=== PATIENT | female | born 1975 | race Asian ===

== ENCOUNTER 2024-12-29 19:34 | Emergency (ER) | payer BC ==
[~2024-12-29] VITALS: Ht 157.5 cm; Wt 66.7 kg
[2024-12-29 20:42] LABS: *BILIRUBIN,URIN NEGATIVE (NEGATIVE); *BLOOD, URINE 2+ (NEGATIVE); *CLARITY,URINE CLOUDY (CLEAR); *COLOR,URINE YELLOW (YELLOW); *KETONES,URINE 1+ (NEGATIVE); *PROTEIN,URINE 2+ (NEGATIVE); *UROBILINOGEN,URINE 0.2 E.U./dl (NORMAL); LEUKOCYTE ESTERASE ,URINE 3+ (NEGATIVE); NITRITE, URINE NEGATIVE (NEGATIVE); UGLUCOSE NEGATIVE (NEGATIVE)
[2024-12-29] MEDS ORDERED: NITR-84 PO (21:57)
[2024-12-29] MEDS ORDERED: ONDA4TAB11 PO (21:57)
[2024-12-29] MEDS ORDERED: CEPH500T PO (21:57)
[2024-12-29] MEDS ORDERED: CEFTRIAXONE 1 G VIAL ONE (21:59)
[2024-12-29] MEDS ORDERED: LIDOCAINE HCL 1% 20 ML VIAL ONE (21:59)
[2024-12-29] MEDS ORDERED: NITROFURANTOIN/NITROFURAN MAC 100 MG CAPSULE PO ONE (21:59)
[2024-12-29] MEDS: CEFTRIAXONE 1 G VIAL IM ONE (22:05)
[2024-12-29] MEDS: NITROFURANTOIN/NITROFURAN MAC 100 MG CAPSULE PO ONE (22:05)
[2024-12-29 22:11] VITALS: BP 109/52; O2SAT 99
== END 2024-12-29 22:12 | disposition home or self-care (01) ==
LOC: ER 20:21
DX: N12 Tubulo-interstitial nephritis, not specified as acute or chronic (principal); J45.909 Unspecified asthma, uncomplicated; G43.909 Migraine, unspecified, not intractable, without status migrainosus
CPT/HCPCS: 99283; 81001; 87086; 96372; J0696; J3490; A4606; A4663

== ENCOUNTER 2025-01-01 23:24 | Emergency (ER) | payer BC ==
[~2025-01-01] VITALS: Ht 157.5 cm; Wt 66.7 kg
[~2025-01-01 23:24] MED LIST: CEPH500T PO; NITR-84 PO; ONDA4TAB11 PO
[2025-01-01] MEDS: IV NORMAL SALINE 1000 ML BAG IV ONE (23:56)
[2025-01-02 00:01] LABS: BASOPHILS # (AUTO) 0.1 K/UL (0.0-0.2); BASOPHILS % (AUTO) 0.8 % (0.0-2.0); EOSINOPHILS # (AUTO) 0.1 K/uL (0.0-0.7); EOSINOPHILS % (AUTO) 0.5 % (0.0-7.0); HEMOGLOBIN 11.8 g/dL (10.9-14.3); LYMPHOCYTES # (AUTO) 1.5 K/uL (0.8-4.8); LYMPHOCYTES % (AUTO) 9.3 % (20.5-51.5); MEAN CORPUSCULAR HGB CONC 34 g/dL (32.3-35.6); MEAN CORPUSCULAR VOLUME 86.2 fL (75.5-95.3); MONOCYTES # (AUTO) 1.1 K/uL (0.1-1.30); MONOCYTES % (AUTO) 6.8 % (0.0-11.0); NEUTROPHILS # (AUTO) 13.1 K/uL (1.8-8.9); NEUTROPHILS % (AUTO) 82.6 % (38.5-71.5); PLATELET COUNT (AUTO) 567 K/uL (179-408); RED BLOOD CELL COUNT(AUTO) 4.06 MIL/uL (3.63-4.92); RED CELL DISTRIBUTION WIDTH 13.3 % (12.3-17.7); WHITE BLOOD COUNT (AUTO) 15.8 K/uL (3.8-11.8)
[2025-01-02 00:03] LABS: *URINE HCG, QUAL NEGATIVE (NEGATIVE)
[2025-01-02 00:04] LABS: *BILIRUBIN,URIN NEGATIVE (NEGATIVE); *BLOOD, URINE 2+ (NEGATIVE); *CLARITY,URINE CLOUDY (CLEAR); *COLOR,URINE YELLOW (YELLOW); *KETONES,URINE NEGATIVE (NEGATIVE); *PROTEIN,URINE 2+ (NEGATIVE); *UROBILINOGEN,URINE 0.2 E.U./dl (NORMAL); DIFFERENTIAL COMMENT 1; LEUKOCYTE ESTERASE ,URINE 3+ (NEGATIVE); NITRITE, URINE NEGATIVE (NEGATIVE); UGLUCOSE NEGATIVE (NEGATIVE)
[2025-01-02 00:06] LABS: CALCIUM 8.9 mg/dL (8.5-10.1); CREATININE 1.1 mg/dL (0.6-1.3); POTASSIUM 3.9 mmol/L (3.5-5.1)
[2025-01-02 00:12] LABS: ALBUMIN 3.1 g/dL (3.4-5.0); BILIRUBIN,DIRECT 0.1 mg/dL (0.0-0.2); BILIRUBIN,TOTAL 0.5 mg/dL (0.2-1.0); TOTAL PROTEIN, SERUM 8.5 g/dL (6.4-8.2)
[2025-01-02] MEDS ORDERED: PIPERACILLIN/TAZOBACTAM/D5W 50 ML IV ONE (00:33)
[2025-01-02 00:39] LABS: BACTERIA,URINE MANY /HPF (NONE SEEN); MUCUS,URINE MANY /LPF (0-FEW); RBC,URINE 20-50 /HPF (0-3); SQUAMOUS EPITHELIAL CELL,UR FEW /HPF (NONE SEEN); WBC,URINE TNTC /HPF (0-3)
[2025-01-02] MEDS: PIPERACILLIN SODIUM/TAZOBACTAM 3.375 G in IV DEXTROSE 5% 50 ML IV ONE (00:41)
[2025-01-02] MEDS ORDERED: ONDANSETRON 4 MG/2 ML VIAL ONE (01:20)
[2025-01-02] MEDS: ONDANSETRON 4 MG/2 ML VIAL IV ONE (01:25)
[2025-01-02] MEDS ORDERED: CIPR500T5 PO (02:42)
[2025-01-02] MEDS ORDERED: ONDA4TAB5 PO (02:42)
[2025-01-02] MEDS ORDERED: METO5TAB87 PO (02:43)
[2025-01-02] MEDS ORDERED: METOCLOPRAMIDE HCL 10 MG/2 ML VIAL ONE (02:57)
[2025-01-02] MEDS: METOCLOPRAMIDE HCL 10 MG/2 ML VIAL IV ONE (03:01)
[2025-01-02] MEDS ORDERED: TRAM50TA2 PO (03:03)
[2025-01-02 03:23] VITALS: BP 132/81; TEMP 98.7; O2SAT 98
== END 2025-01-02 03:23 | disposition home or self-care (01) ==
LOC: ER 23:32
DX: N12 Tubulo-interstitial nephritis, not specified as acute or chronic (principal); R30.9 Painful micturition, unspecified; J45.909 Unspecified asthma, uncomplicated; G43.909 Migraine, unspecified, not intractable, without status migrainosus; Z79.899 Other long term (current) drug therapy
CPT/HCPCS: 99284; 96361; 80076; 80048; 81001; 84703; 85025; 84145; 87040; 87086; 36415; 83605; 96365; 96375; J2765; J2405; J2543; J7040; A4606; A4663